=== PATIENT | female | born 1950 | race Caucasian/White ===

== ENCOUNTER → 2022-10-04 10:40 | Outpatient (CLI) | payer MEDICARE, OTHER, SELFPAY ==
[2022-10-04 12:24] LABS: Add Manual Diff / Slide Review NO; Basophils Absolute Auto 0 /uL (0-100); Basophils Percent Auto 0.8 % (0-2); Eosinophils Absolute Auto 200 /uL (0-450); Eosinophils Percent Auto 3.3 % (2-4); Hematocrit 40.4 % (36-46); Hemoglobin 13.5 g/dL (12.0-16.0); Lymphocytes Absolute Auto 1800 /uL (1100-4500); Mean Corpuscular HGB Conc 33.4 % (30-36); Mean Corpuscular Hemoglobin 29.7 PG (26-34); Mean Corpuscular Volume 89.2 fL (80-100); Monocytes Absolute Auto 400 /uL (0-900); Monocytes Percent Auto 8.9 % (3-14); Neutrophils Absolute Auto 2600 /uL (1500-7000); Platelet Count 350 X10^3/uL (150-400); Red Blood Cell Count 4.53 X10^6/uL (4.0-5.2); Red Cell Distribution Width 13.9 % (11.6-14.8)
[2022-10-04 12:27] LABS: Hemoglobin A1C% w Est Avg Glu 5.7 % (4.0-6.0)
[2022-10-04 12:29] LABS: Alanine Aminotransferase 13 IU/L (<35); Albumin 3.8 g/dL (3.5-5.0); Albumin Globulin Ratio 1.2 (1.0-2.8); Alkaline Phosphatase 58 U/L (38-126); Aspartate Aminotransferase 17 IU/L (14-36); BUN Creatinine Ratio 21.7 (6-22); Bilirubin Total 0.4 mg/dL (0.2-1.3); Blood Urea Nitrogen 13 mg/dL (7-17); Calcium 9.3 mg/dL (8.4-10.2); Carbon Dioxide 31 mmol/L (22-32); Chloride 102 mmol/L (98-107); Cholesterol 249 mg/dL (140-199); Estimated Glomerular Filt Rate > 60 mL/min (>60); Globulin 3.2 g/dL (1.7-4.1); Glucose 87 mg/dL (80-110); HDL Cholesterol 56 mg/dL (40-60); HEMOLYSIS < 15 (0-50); LDL Cholesterol Calculated 170 mg/dL (<100); Potassium 3.6 mmol/L (3.4-5.1); Sodium 142 mmol/L (137-145); Triglycerides 115 mg/dL (35-150)
[2022-10-04 12:45] LABS: Free T3, Triiodothyronine Free 2.88 pg/mL (2.77-5.27); Free T4, Direct Thyroxine 1.29 ng/dL (0.78-2.19)
[2022-10-04 12:58] LABS: Thyroid Stimulating Hormone 1.94 uIU/mL (0.47-4.68)
[2022-10-04 13:19] LABS: Vitamin B12 618 pg/mL (239-931)
== END ==
PROVIDERS: PCP Naturopath; Referring Provider Naturopath; Visit Provider Naturopath
DX: M06.9 Rheumatoid arthritis, unspecified (principal); Z00.00 Encounter for general adult medical examination without abnormal findings; E03.9 Hypothyroidism, unspecified; R53.83 Other fatigue; J44.9 Chronic obstructive pulmonary disease, unspecified
CPT/HCPCS: 36415; 80053; 80061; 82607; 83036; 84439; 84443; 84481; 85025

== ENCOUNTER 2023-02-05 14:19 | Emergency (ER) | payer MEDICARE, OTHER, SELFPAY ==
[2023-02-05 14:23] VITALS: BP 185/77; PULSE 76; RESP 22; TEMP 37; O2SAT 93; BMI 33.8
--- NOTE | 2023-02-05 14:46 | DI.RAD.S_ITS ---
PROCEDURE: XR PELVIS 1-2V INDICATIONS: fall/tailbone/pelvis TECHNIQUE: 1 view(s) of the pelvis acquired. COMPARISON: None. FINDINGS: Bones: No fractures or dislocations. No suspicious bony lesions. Soft tissues: Visualized bowel gas pattern is normal. No suspicious soft tissue calcifications. IMPRESSION: No evidence acute bony abnormality. If clinical suspicion and/or symptoms persist, further assessment with repeat plain films, or advanced imaging (e.g., CT, MRI, or bone scan) may be helpful for further assessment. Dictated by: Valeriy Bella M.D. on 02/05/2023 at 17:16 Approved by: Valeriy Bella M.D. on 02/05/2023 at 17:16
--- NOTE | 2023-02-05 14:46 | DI.CT.S_ITS ---
PROCEDURE: CT HEAD/BRAIN WO CON INDICATIONS: fall/hit head TECHNIQUE: Noncontrast 4.5 mm thick angled axial sections acquired from the foramen magnum to the vertex, with coronal and sagittal reformats. For radiation dose reduction, the following was used: automated exposure control, adjustment of mA and/or kV according to patient size. COMPARISON: None. FINDINGS: Image quality: Excellent. CSF spaces: Basal cisterns are patent. No extra-axial fluid collections. The ventricles are symmetric in size and shape. Brain: No intracranial bleeds or masses. There is mild cerebral volume loss for age, with resultant ventricular and sulcal prominence. There are periventricular and deep white matter chronic small vessel ischemic changes. There is intracranial internal carotid artery atherosclerosis. Skull and face: Calvarium and visualized facial bones appear intact, without suspicious lesions. Sinuses: Visualized sinuses and mastoids are clear. IMPRESSION: 1. No acute intracranial findings. 2. Mild findings likely associated with microvascular ischemic change. Dictated by: Erin Lopze M.D. on 02/05/2023 at 16:07 Approved by: Erin Lopez M.D. on 02/05/2023 at 16:08
--- NOTE | 2023-02-05 14:46 | DI.RAD.S_ITS ---
PROCEDURE: XR CHEST 2V INDICATIONS: fall/hit head TECHNIQUE: 2 views of the chest were acquired. COMPARISON: , CR, XR CHEST 2VW, 06/11/2015, 18:14. FINDINGS: Surgical changes and devices: None. Lungs and pleura: There is diffuse interstitial prominence. Findings have a similar appearance to the comparison plain film dated June 11, 2015. No acute airspace opacities. No pleural effusion or pneumothorax. Mediastinum: Mediastinal contours are normal. Heart size is normal. Bones and chest wall: Multiple compression deformities and prior multilevel vertebroplasty is redemonstrated. Bones are diffusely osteopenic. IMPRESSION: 1. Diffuse interstitial prominence suggesting fibrotic change. Dictated by: Erin Lopez M.D. on 02/05/2023 at 16:05 Approved by: Erin Lopez M.D. on 02/05/2023 at 16:06
--- NOTE | 2023-02-05 14:46 | DI.CT.S_ITS ---
PROCEDURE: CT CERVICAL SPINE WO CON INDICATIONS: fall/hit head TECHNIQUE: Noncontrast 3 mm thick sections acquired from the skull base to the T4 level. Sagittal and coronal reformats were then constructed. For radiation dose reduction, the following was used: automated exposure control, adjustment of mA and/or kV according to patient size. COMPARISON: None. FINDINGS: Image quality: Excellent. Bones: No fractures or dislocations. Visualized superior ribs are intact. Soft tissues: Prevertebral soft tissues are normal in thickness. No paravertebral hematomas. No apical pneumothoraces. Scattered atheromatous calcifications are present within the aortic arch. IMPRESSION: No acute cervical spine injury. Dictated by: Erin Lopez M.D. on 02/05/2023 at 16:08 Approved by: Erin Lopez M.D. on 02/05/2023 at 16:10
[2023-02-05 15:41] VITALS: BP 146/73; PULSE 73; RESP 16; O2SAT 88
--- NOTE | 2023-02-05 18:14 | ED.FALL ---
HPI - Fall General Chief Complaint: Fall Stated Complaint: sitting on walker and fell landed on butt hit head Time Seen by Provider: 02/05/23 18:05 Source: patient Mode of arrival: Ambulatory History of Present Illness HPI Narrative: Patient is a 72-year-old female who was not on anticoagulation who is sitting in the walker that she uses she goes on extended walk secondary to her COPD. She states that the walker slid out from underneath her and she fell down landing specifically on her buttocks and then falling over and hitting her head. There was no loss of consciousness. She was placed in a cervical collar upon arrival however when I went to evaluate the patient the collar had been removed. She reports no neck pain. Does have some lower back pain. Has not tried anything for symptoms prior to arrival. Related Data Home Medications Medication Instructions Recorded Confirmed denosumab 60 mg/mL subcutaneous 60 mg SUBCUT [id number] 12/02/22 12/02/22 syringe (Prolia) etanercept 50 mg/mL (1 mL) 50 mg SUBCUT 2XW 12/02/22 12/02/22 subcutaneous cartridge levothyroxine 25 mcg tablet 25 mcg PO DAILY 12/02/22 12/02/22 (Synthroid) prednisone 1 mg tablet 1 mg PO DAILY 12/02/22 12/02/22 rosuvastatin 5 mg tablet 5 mg PO DAILY 12/02/22 12/02/22 Allergies Allergy/AdvReac Type Severity Reaction Status Date / Time No Known Drug Allergies Allergy Unverified 12/02/22 13:26 Review of Systems Constitutional Constitutional: Reports system reviewed and no additional complaints, except as documented Cardiovascular Cardiovascular: Reports system reviewed and no additional complaints, except as documented Respiratory Respiratory: Reports system reviewed and no additional complaints, except as documented Gastrointestinal Gastrointestinal: Reports system reviewed and no additional complaints, except as documented Integumentary/Breasts Skin/Breast: Reports system reviewed and no additional complaints, except as documented Neurologic Neurologic: Reports system reviewed and no additional complaints, except as documented Hematologic/Lymphatic On Anticoagulants: No Patient History Social History Smoking Status: Former smoker Smoking Status: Former smoker Substance Use Type: does not use Exam Initial Vital Signs Initial Vital Signs: Vital Signs Temperature 98.6 F 02/05/23 14:23 Pulse Rate 76 02/05/23 14:23 Respiratory Rate 22 02/05/23 14:23 Blood Pressure 185/77 H 02/05/23 14:23 Pulse Oximetry 93 02/05/23 14:23 Oxygen Delivery Method Room Air 02/05/23 14:23 Const General: cooperative, comfortable and No ill appearing [facility] [place] Head: normocephalic and contusion (Right parietal region) Resp Effort & Inspection: normal respiratory effort Auscultation: clear to auscultation bilaterally Cardio Rate: regular rate Rhythm: regular rhythm Back/Spine/Pelvis Cervical Spine: No cervical spinal tenderness Skin Other: Contusion of the right parietal region of the scalp Neuro General: patient alert, patient awake and moves all extremities Extrem General: normal to inspection and capillary refill normal Course Orders Ordered: ED Orders 02/05/23 14:46 CT cervical spine wo con Stat CT head/brain wo con Stat XR chest 2V Stat XR pelvis 1-2V Stat Vital Signs Vital signs: Vital Signs - 8 hr 02/05/23 18:21 Pulse Rate 78 Respiratory Rate 16 Blood Pressure 145/69 H Pulse Oximetry 88 L Oxygen Delivery Method Room Air MDM - Fall Imaging Data CT - cervical spine: Radiologist's Impression: PROCEDURE:? CT CERVICAL SPINE WO CON ? INDICATIONS:? fall/hit head ? TECHNIQUE:? Noncontrast 3 mm thick sections acquired from the skull base to the T4 level.? Sagittal and coronal reformats were then constructed.? For radiation dose reduction, the following was used:? automated exposure control, adjustment of mA and/or kV according to patient size.? ? COMPARISON:? None. ? FINDINGS:? Image quality:? Excellent.? ? Bones:? No fractures or dislocations.? Visualized superior ribs are intact.? ? Soft tissues:? Prevertebral soft tissues are normal in thickness.? No paravertebral hematomas.? No apical pneumothoraces.? Scattered atheromatous calcifications are present within the aortic arch. ? IMPRESSION:? No acute cervical spine injury. Chest x-ray: Radiologist's Impression: PROCEDURE:? XR CHEST 2V ? INDICATIONS:? fall/hit head ? TECHNIQUE:? 2 views of the chest were acquired.? ? COMPARISON:? [facility], CR, XR CHEST 2VW, 06/11/2015, 18:14. ? FINDINGS:? ? Surgical changes and devices:? None.? ? Lungs and pleura:? There is diffuse interstitial prominence.? Findings have a similar appearance to the comparison plain film dated June 11, 2015. No acute airspace opacities.? No pleural effusion or pneumothorax. ? Mediastinum:? Mediastinal contours are normal.? Heart size is normal.? ? Bones and chest wall:? Multiple compression deformities and prior multilevel vertebroplasty is redemonstrated.? Bones are diffusely osteopenic. ? IMPRESSION:? ? 1. Diffuse interstitial prominence suggesting fibrotic change.? CT scan - head: Radiologist's Impression: PROCEDURE:? CT HEAD/BRAIN WO CON ? INDICATIONS:? fall/hit head ? TECHNIQUE:? Noncontrast 4.5 mm thick angled axial sections acquired from the foramen magnum to the vertex, with coronal and sagittal reformats.? For radiation dose reduction, the following was used:? automated exposure control, adjustment of mA and/or kV according to patient size.? ? COMPARISON:? None. ? FINDINGS:? Image quality:? Excellent.? ? CSF spaces:? Basal cisterns are patent.? No extra-axial fluid collections.? The ventricles are symmetric in size and shape.? ? Brain:? No intracranial bleeds or masses.? There is mild cerebral volume loss for age, with resultant ventricular and sulcal prominence.? There are periventricular and deep white matter chronic small vessel ischemic changes.? There is intracranial internal carotid artery atherosclerosis.? ? Skull and face:? Calvarium and visualized facial bones appear intact, without suspicious lesions.? ? Sinuses:? Visualized sinuses and mastoids are clear.? ? IMPRESSION:? ? 1. No acute intracranial findings. ? 2. Mild findings likely associated with microvascular ischemic change.? pelvis x-ray: Radiologist's Impression: PROCEDURE:? XR PELVIS 1-2V ? INDICATIONS:? fall/tailbone/pelvis ? TECHNIQUE:? 1 view(s) of the pelvis acquired.? ? COMPARISON:? None. ? FINDINGS:? ? Bones:? No fractures or dislocations.? No suspicious bony lesions.? ? Soft tissues:? Visualized bowel gas pattern is normal.? No suspicious soft tissue calcifications.? ? IMPRESSION:? No evidence acute bony abnormality. MDM Narrative Medical decision making narrative: Radiologic studies here in the emergency department are all unremarkable. The contusion on her scalp needs no specific intervention here in the ER. She is no neck pain. He is hypoxic but does have history of COPD and does have oxygen at home. Will discharge patient home with return precautions. She expressed understanding and agreement with plan. Discharge Plan Departure Patient Disposition: Home Clinical Impression: Contusion of scalp, Acute coccygeal pain Instructions: DI for Contusion Activity Restrictions/Additional Instructions: Recommend that you continue to take all of your medications as directed. Contact your primary doctor for follow-up. Return to the emergency department for new or worsening symptoms. Prescriptions: No Action Prolia 60 mg/mL syringe 60 mg SUBCUT [id number] etanercept 50 mg/mL (1 mL) cartridge 50 mg SUBCUT 2XW levothyroxine [Synthroid] 25 mcg tablet 25 mcg PO DAILY rosuvastatin 5 mg tablet 5 mg PO DAILY prednisone 1 mg tablet 1 mg PO DAILY Referrals: Gabi Lewis ND [Primary Care Provider] - Stand Alone Forms: Patient Portal/API
[2023-02-05 18:21] VITALS: BP 145/69; PULSE 78; RESP 16; O2SAT 88
== END 2023-02-05 18:21 | disposition home or self-care (01) ==
PROVIDERS: Emergency Provider Emergency Medicine; PCP Naturopath
DX: S00.03XA Contusion of scalp, initial encounter (principal); M53.3 Sacrococcygeal disorders, not elsewhere classified; R09.02 Hypoxemia; W17.89XA Other fall from one level to another, initial encounter
CPT/HCPCS: 70450; 71046; 72125; 72170; 99281; 99284

== ENCOUNTER → 2023-02-27 12:09 | Outpatient (CLI) | payer MEDICARE, OTHER, SELFPAY ==
--- NOTE | 2023-02-27 12:41 | DI.CT.S_ITS ---
PROCEDURE: CT CHEST HIGH RESOLUTION INDICATIONS: Interstitial pulmonary disease, unspecified TECHNIQUE: Noncontrast 1.0 and 5.0 mm thick contiguous axial sections from the pulmonary apex to the posterior costophrenic angles, with 7 mm thick coronal and sagittal MIP reformats. 1 mm thick dynamic expiratory images acquired through the upper, mid, and lower lungs. 1.0 mm thick axial sections acquired from the joseline to the posterior costophrenic angles in the prone end-inspiration position. For radiation dose reduction, the following was used: automated exposure control, adjustment of mA and/or kV according to patient size. COMPARISON: None. FINDINGS: Image quality: Good Lungs and pleura: Emphysematous changes. Mild suspected atelectasis, although prone images were not obtained for confirmation. Scattered other areas of suspected scarring. No honeycombing. Possible minimal reticular changes at the periphery of the lung. There is moderate degree of air trapping. This is most noticeable in the bilateral lower lobes. No pleural effusions. There are multiple small pulmonary nodules, index nodule in the left costophrenic angle measuring 9-10 mm. (2/186) Mediastinum, heart, and esophagus: No pathologic adenopathy by size criteria. Atherosclerotic calcifications and coronary calcifications. Small hiatal hernia. Mild lipomatous hypertrophy of the interatrial septum. Chest wall and thyroid: Thyroid is partially seen. No significant chest wall abnormality. Upper abdomen: No gross abnormality on these noncontrast images Bones: Vertebral augmentation at multiple levels. Degenerative changes. No definitely acute or suspicious finding. Exaggerated thoracic kyphosis, partially in part due to multiple fractures status post augmentation. There is also a manubrial deformity. IMPRESSION: Emphysematous changes and moderate degree of air trapping, the latter indicating chronic small airways constriction/inflammation. Minimal peripheral reticulation without honeycombing. Consider future followup to assess for progression.. ATS 2018 HRCT classification: Not compatible with UIP pattern. Multiple pulmonary nodules, index lesion at the left costophrenic angle, which may represent a nodular area of scarring measuring 9-10 mm (2/186). Consider regular CT follow-up in three months. Coronary disease. Dictated by: Merlin Samuel M.D. on 02/27/2023 at 16:23 Approved by: Merlin Samuel M.D. on 02/27/2023 at 16:30
== END ==
PROVIDERS: PCP Naturopath; Referring Provider Internal Medicine Pulmonary Disease; Visit Provider Internal Medicine Pulmonary Disease
DX: J84.9 Interstitial pulmonary disease, unspecified (principal); R91.8 Other nonspecific abnormal finding of lung field; I25.10 Atherosclerotic heart disease of native coronary artery without angina pectoris; K44.9 Diaphragmatic hernia without obstruction or gangrene
CPT/HCPCS: 71250

== ENCOUNTER → 2024-02-11 15:18 | Outpatient (CLI) | payer MEDICARE, OTHER, SELFPAY ==
--- NOTE | 2024-02-11 15:21 | DI.RAD.S_ITS ---
PROCEDURE: XR CERVICAL SPINE 2V OR 3V INDICATIONS: NECK PAIN TECHNIQUE: 3 view(s) of the cervical spine were acquired. COMPARISON: [facility], CT, CT CERVICAL SPINE WO [facility], 02/05/2023, 14:56. FINDINGS: Bones: No fractures or dislocations to the C5 level. Mild degenerative changes. The lateral masses of C1 appear intact on the odontoid view. No suspicious bony lesions. Soft tissues: No prevertebral soft tissue swelling. IMPRESSION: Suboptimal images as the shoulder obscures evaluation of the lower cervical spine. Mild degenerative changes. Dictated by: Joe Masterson M.D. on 02/11/2024 at 19:06 Approved by: Joe Masterson M.D. on 02/11/2024 at 19:10
== END ==
PROVIDERS: PCP Naturopath
DX: M54.2 Cervicalgia (principal); M47.812 Spondylosis without myelopathy or radiculopathy, cervical region
CPT/HCPCS: 72040

== ENCOUNTER → 2024-02-16 12:21 | Outpatient (CLI) | payer MEDICARE, OTHER, SELFPAY ==
--- NOTE | 2024-02-16 12:24 | DI.ECHO.S_ITS ---
[place] [facility]---------+ [facility] : : [address] : : [place] : : [id number] : : Phone: [phone] Echocardiogram Report + + :Name: REY OVERTON Study Date: 02/16/2024 Height: 62 in : :[facility] ReadingLocation: Weight: 190 lb : : Gender: Female BSA: 1.9 m2 : :: 1950 Age: 73 yrs BP: 164/88 mmHg: :Reason For Study: CHRONIC DIASTOLIC HEART FAILURE : :Ordering Physician: SE, : :DIMITRI Performed By: Dax Howard : :Referring: DIMITRI SAEZ : + + Interpretation Summary The study quality was technically difficult. There is mild concentric left ventricular hypertrophy. The ejection fraction is estimated to be 60-65%. The left atrium is moderately dilated. The right atrium is mild to moderately dilated. There is mild aortic valve sclerosis. There is mild mitral annular calcification. Procedure: A two-dimensional transthoracic echocardiogram with color flow and Doppler was performed. The study quality was technically difficult. There is no prior echocardiogram noted for this patient. The heart rate ranged between 59-85 bpm during the study. Left Ventricle: The left ventricle is normal in size. There is mild concentric left ventricular hypertrophy. The ejection fraction is estimated to be 60-65%. There are no focal wall motion abnormalities. Right Ventricle: The right ventricle is normal in size and function. Atria: The left atrium is moderately dilated. The right atrium is mild to moderately dilated. The interatrial septum grossly appears intact with no obvious evidence for an atrial septal defect. Mitral Valve: The mitral valve is grossly normal. There is mild mitral annular calcification. There is no mitral valve stenosis. There is trace mitral regurgitation. Aortic Valve: The aortic valve is trileaflet. There is mild aortic valve sclerosis. There is no aortic valve stenosis. No aortic regurgitation is present. Tricuspid Valve: The tricuspid valve is not well visualized. There is no tricuspid stenosis. No tricuspid regurgitation. Pulmonic Valve: The pulmonic valve is not well visualized. There is no pulmonic valvular stenosis. There is no pulmonic valvular regurgitation. Great Vessels: The aortic root is normal size. The dimensions of the ascending aorta are normal. The inferior vena cava was not visualized. Pericardium/ Pleura There is no pericardial effusion. There is no pleural effusion. MMode/2D Measurements & Calculations LVIDd: 5.5 cm LVOT diam: 2.2 cm LVIDs: 4.1 cm Ao root diam: 3.1 cm FS: 25.2 % asc Aorta Diam: 3.3 cm IVSd: 1.2 cm LVPWd: 1.1 cm LV tolbert. diameter/BSA (cm/m^2): 2.9 LV sys. diameter/BSA (cm/m^2): 2.2 LA A2 area: 27.4 cm2 RA long axis: 5.1 cm LA A4 area: 28.4 cm2 RA area: 21.6 cm2 LA length (vol): 5.7 cm RA vol: 77.5 ml LA vol: 116.8 ml RA : 41.4 ml/m2 LA vol index: 62.4 ml/m2 RVD1 (basal): 3.6 cm RVD2 (mid): 3.0 cm TAPSE: 1.9 cm Doppler Measurements & Calculations Ao V2 max: 131.0 cm/sec LVOT Max Robert: 97.9 cm/sec Ao V2 mean: 90.7 cm/sec LV V1 max P.8 mmHg Ao max P.9 mmHg LV V1 VTI: 24.8 cm Ao mean P.7 mmHg TAYLOR(I,D): 3.2 cm2 Ao V2 VTI: 30.4 cm TAYLOR(V,D): 2.9 cm2 sev ratio: 0.82 TAYLOR indexed to BSA (cm^2/m^2): 1.7 Med Peak E' Robert: 6.4 cm/sec PA V2 max: 105.4 cm/sec Lat Peak E' Robert: 8.4 cm/sec PA V2 mean: 77.0 cm/sec PA mean P.6 mmHg PA pr(Accel): 51.6 mmHg SV(LVOT): 96.0 ml Electronically signed by: Alpesh Holbrook on Reading Physician:02/16/2024 03:27 PM
--- NOTE | 2024-02-16 12:24 | DI.US.S_ITS ---
PROCEDURE: US CAROTID DOPPLER BI INDICATIONS: Chronic diastolic (congestive) heart failure TECHNIQUE: Color and pulse Doppler interrogation was performed of both carotid systems, with image documentation and velocity measurements. COMPARISON: [facility], CT, CT CERVICAL SPINE WO CON, 02/05/2023, 14:56. FINDINGS: Stenosis calculations are based on SRU (Society of Radiologists in Ultrasound) criteria. Right side: Brachial blood pressure: 211/84 mm Hg. Common carotid artery peak systolic velocity: 87 cm/sec. Internal carotid artery peak systolic velocity: 61 cm/sec. Internal carotid artery end diastolic velocity: 19 cm/sec. External carotid artery peak systolic velocity: 102 cm/sec. ICA/CCA peak systolic ratio: 0.7. Brock scale imaging description: Extensive plaque. Percent internal carotid artery stenosis: Less than 50% stenosis. Vertebral artery: Flow direction is antegrade. Left side: Brachial blood pressure: 186/80 mm Hg. Common carotid artery peak systolic velocity: 68 cm/sec. Internal carotid artery peak systolic velocity: 93 cm/sec. Internal carotid artery end diastolic velocity: 16 cm/sec. External carotid artery peak systolic velocity: 73 cm/sec. ICA/CCA peak systolic ratio: 1.4. Brock scale imaging description: Moderate to severe plaque. Percent internal carotid artery stenosis: Less than 50% stenosis. Vertebral artery: Flow direction is antegrade. IMPRESSION: 1. Right ICA: Less than 50 % stenosis. 2. Left ICA: Less than 50 % stenosis. 3. Antegrade flow in the bilateral vertebral arteries. Dictated by: Joe Masterson M.D. on 02/16/2024 at 18:22 Approved by: Joe Masterson M.D. on 02/16/2024 at 18:25
== END ==
LOC: ECHO 12:22
PROVIDERS: PCP Naturopath; Referring Provider Physician Assistant; Visit Provider Physician Assistant
DX: I65.23 Occlusion and stenosis of bilateral carotid arteries (principal); I50.32 Chronic diastolic (congestive) heart failure; I34.81 Nonrheumatic mitral (valve) annulus calcification; I35.8 Other nonrheumatic aortic valve disorders
CPT/HCPCS: 93306; 93880

== ENCOUNTER → 2024-10-01 12:21 | Outpatient (CLI) | payer MEDICARE, OTHER, SELFPAY ==
--- NOTE | 2024-10-01 12:25 | DI.CT.S_ITS ---
PROCEDURE: CT CHEST HIGH RESOLUTION INDICATIONS: Breathing problem TECHNIQUE: Noncontrast 1.0 and 5.0 mm thick contiguous axial sections from the pulmonary apex to the posterior costophrenic angles, with 7 mm thick coronal and sagittal MIP reformats. 1 mm thick dynamic expiratory images acquired through the upper, mid, and lower lungs. 1.0 mm thick axial sections acquired from the joseline to the posterior costophrenic angles in the prone end-inspiration position. For radiation dose reduction, the following was used: automated exposure control, adjustment of mA and/or kV according to patient size. COMPARISON: [facility], CT, CT CHEST HIGH RESOLUTION, 02/27/2023, 12:37. FINDINGS: Image quality: Diagnostic. Lower Neck: No enlarged lymph nodes. Thyroid: Not visualized Axillae: No enlarged lymph nodes. Chest Wall: Unremarkable. Bones: Healed sternal manubrium fracture. Stable compression deformities of the thoracolumbar spine, status post vertebral augmentation. Osteoporosis. Lungs and Pleura: Confluent centrilobular emphysema. Stable juxtapleural nodules in the left lower lobe. Similar mild architectural distortion in the right upper lobe. Diffuse bronchial thickening period mild smooth interstitial thickening. Lower lobe predominant air trapping. Heart: Heart size is enlarged, with three-vessel coronary calcifications.. No pericardial effusion. Thoracic Vessels: The aorta and pulmonary arteries demonstrate normal size. Mediastinum and [place]: No enlarged lymph nodes. Esophagus: No wall thickening. No hiatal hernia. Upper Abdomen: Visualized upper abdomen solid organs and bowel loops appear normal. IMPRESSION: Mild pulmonary edema. Confluent centrilobular emphysema, without significant change from prior. Stable juxtapleural nodules in the left lower lobe. Lower lobe predominant air trapping, similar to prior. Consider annual low-dose lung cancer screening if eligible (age 50-85 who have a 20 pack-year smoking history and currently smoke or have quit within the last 15 years). Dictated by: Jadon Pop M.D. on 10/01/2024 at 15:53 Approved by: Jadon Pop M.D. on 10/01/2024 at 15:57
== END ==
PROVIDERS: PCP Naturopath; Referring Provider Internal Medicine Pulmonary Disease; Visit Provider Internal Medicine Pulmonary Disease
DX: J44.9 Chronic obstructive pulmonary disease, unspecified (principal); J84.9 Interstitial pulmonary disease, unspecified; J81.1 Chronic pulmonary edema; J43.2 Centrilobular emphysema; R91.8 Other nonspecific abnormal finding of lung field
CPT/HCPCS: 71250

== ENCOUNTER → 2024-10-05 11:11 | Outpatient (CLI) | payer MEDICARE, OTHER, SELFPAY | LOC: RESP 11:12 | PROVIDERS: PCP Naturopath; Referring Provider Internal Medicine Pulmonary Disease; Visit Provider Internal Medicine Pulmonary Disease | DX: J44.9 Chronic obstructive pulmonary disease, unspecified (principal); J84.9 Interstitial pulmonary disease, unspecified; Z87.891 Personal history of nicotine dependence; R94.2 Abnormal results of pulmonary function studies | CPT/HCPCS: 94060; 94726; 94729 ==

== ENCOUNTER → 2024-11-15 14:23 | Outpatient (CLI) | payer MEDICARE, OTHER, SELFPAY ==
--- NOTE | 2024-11-15 14:24 | DI.US.S_ITS ---
PROCEDURE: US PERIPH VENOUS LOW EXTREM RT INDICATIONS: RIGHT CALF PAIN TECHNIQUE: Real-time imaging, as well as color and pulse Doppler interrogation, were performed of the lower extremity deep veins from the inguinal ligament to the popliteal fossa, with documentation of the visualized calf veins. COMPARISON: None. FINDINGS: The common femoral, femoral, popliteal, and the visualized calf veins are normally compressible, and free of intraluminal thrombus. Color and pulse Doppler demonstrate normal phasic intraluminal flow. There is normal augmentation response to distal compression maneuver. IMPRESSION: No evidence of DVT in visualized right lower extremity veins. Dictated by: Mt Trent M.D. on 11/15/2024 at 15:19 Approved by: Mt Trent M.D. on 11/15/2024 at 15:21
== END ==
PROVIDERS: PCP Naturopath; Referring Provider Family Medicine; Visit Provider Family Medicine
DX: M79.661 Pain in right lower leg (principal)
CPT/HCPCS: 93971

== ENCOUNTER → 2025-01-07 13:46 | Outpatient (CLI) | payer MEDICARE, OTHER, SELFPAY ==
--- NOTE | 2025-01-10 17:40 | DI.NM.S_ITS ---
DATE OF SERVICE: 01/07/2025 NUCLEAR CARDIOLOGY MYOCARDIAL PERFUSION STUDY PROCEDURE PERFORMED: Pharmacologic vasodilator stress and rest myocardial perfusion imaging study with gating to assess ejection fraction and regional wall motion. ORDERING PROVIDER: Sukhdeep Trent MD. INDICATIONS: The patient is a 74-year-old female with oxygen-dependent interstitial lung disease and coronary artery calcification. CARDIAC STRESS: Per protocol, 0.4 mg of regadenoson was infused with a normal hemodynamic response with minimal dyspnea and no chest discomfort. Her resting ECG is normal except very subtle ST- segment abnormalities that become slightly accentuated with stress but remain nonspecific. She develops occasional PVCs, briefly in a bigeminal pattern with stress but no other complex arrhythmias. Per protocol, 25.3 millicuries of technetium-99m Myoview was injected and she was imaged 15 minutes later using a gated SPECT acquisition protocol. Three days prior, while at rest, she had been injected with 25 millicuries of technetium-99m Myoview and was imaged 15 minutes later, again using a quantitative gated SPECT protocol. FINDINGS: 1. There is fair myocardial tracer uptake but with prominent breast shadows that clearly produced some attenuation. The lung/heart ratio is normal at 0.27. While the TID ratio is borderline elevated at 1.31, this is nonspecific with the use of pharmacologic vasodilator stress. 2. Quantitated gated SPECT. Post-stress ejection fraction is 61% without any focal wall motion abnormality. Resting ejection fraction is 64% with a normal resting end-diastolic volume of 110 mL. There is significant right ventricular tracer uptake with borderline hypokinesis, suggesting a probable underlying right ventricular ovrload condition, but clinical correlation is needed. 3. Myocardial perfusion imaging: While there is significant subdiaphragmatic tracer uptake that over flows into the inferior wall, there are no perfusion defects on the supine images, revealing a normal perfusion pattern. No prone images were available as she was unable to lie prone. The resting image show an identical perfusion pattern without any significant improvement. IMPRESSION: 1. Normal myocardial perfusion study for ischemia. 2. No perfusion defects to suggest myocardial ischemia or previous myocardial infarction. 3. Normal left ventricular size and systolic function without any focal wall motion abnormality. There is increased right ventricular tracer uptake, which can be an indication of a right ventricular stress condition, but clinical correlation is needed. 4. No angina or significant ECG evidence for ischemia, but with subtle ST-segment shifts and PVCs with stress, at times in a bigeminal pattern, but no concerning arrhythmia. While post-stress volumes are slightly larger with a TID ratio of 1.31, which can be an indication of global ischemia, it is nonspecific with the use of vasodilator stress and clinical correlation is recommended. Lindsey De Souza - DAVID/kee/DAMIAN doc#: [id number]/job#: [id number] dd: 01/10/2025 17:15:00 dt: 01/10/2025 17:26:00 DICTATING MD/COPIES TO: Yovany Dumont MD; Sukhdeep Trent MD COPIES MNE: IRIS;
== END ==
PROVIDERS: PCP Physician Assistant; Referring Provider Internal Medicine; Visit Provider Internal Medicine
DX: I25.10 Atherosclerotic heart disease of native coronary artery without angina pectoris (principal)
CPT/HCPCS: 78452; 93017; A9502; J2785

== ENCOUNTER → 2025-01-12 10:18 | Outpatient (CLI) | payer MEDICARE, OTHER, SELFPAY ==
--- NOTE | 2025-01-12 10:19 | DI.ECHO.S_ITS ---
[facility] : : [address] : : [place] : : [id number] : : Phone: [phone] Echocardiogram Report + + :Name: REY OVERTON Study Date: 01/12/2025 Height: 62 in : :[facility] ReadingLocation: Weight: 202 lb : : Gender: Female BSA: 1.9 m2 : :: 1950 Age: 74 yrs BP: 154/69 mmHg: :Reason For Study: ARTERY CALCIFICATION : :Ordering Physician: JACKELYN TRENT Performed By: Dax Howard : :Referring: JACKELYN TRENT : + + Interpretation Summary 1. The left ventricular contractility is borderline. Estimate ejection fraction is approximately 50 to 55% with no segmental wall motion abnormalities. Mild asymmetrical septal hypertrophy without obstruction. No diastolic dysfunction. 2. The right ventricular contractility is normal. 3. All cardiac chambers are normal size. 4. No significant valvular abnormalities. 5. No obvious intracardiac shunts. 6. No obvious intracardiac masses nor thrombi. 7. No hemodynamically significant pericardial effusion. 8. Low right-sided filling pressures. Conclusion: Low normal left ventricular systolic function with no significant valvular abnormalities. When compared with previous echocardiogram, there is a decline in the left ventricular systolic function. Procedure: A two-dimensional transthoracic echocardiogram with color flow and Doppler was performed. The study quality was technically difficult. Comparison is made with the echocardiogram of 02/16/2024. The patient was in normal sinus rhythm during the exam. Left Ventricle: The left ventricle is normal in size. There is mild asymmetric left ventricular hypertrophy. There is no ventricular septal defect visualized. The ejection fraction is estimated to be 50-55%. Right Ventricle: The right ventricle is normal in size and function. Atria: The left atrial size is normal. Right atrial size is normal. There is no Doppler evidence for an interatrial shunt. Mitral Valve: The mitral valve leaflets appear normal. There is no evidence of stenosis, fluttering, or prolapse. There is mild mitral annular calcification. There is trace mitral regurgitation. Aortic Valve: The aortic valve is trileaflet. The aortic valve opens well. No aortic regurgitation is present. Tricuspid Valve: The tricuspid valve leaflets are thin and pliable. There is trace tricuspid regurgitation. Pulmonic Valve: The pulmonic valve is not well seen, but is grossly normal. There is trace pulmonic regurgitation. Great Vessels: The aortic root is normal size. The dimensions of the ascending aorta are normal. The pulmonary artery is normal size. The IVC is of normal diameter and collapses greater than 50% with a sniff. This suggests a low right atrial pressure of 3 mm Hg. Pericardium/ Pleura There is no pericardial effusion. There is no pleural effusion. MMode/2D Measurements & Calculations LVIDd: 5.7 cm LVOT diam: 1.9 cm LVIDs: 4.3 cm Ao root diam: 3.1 cm FS: 24.4 % asc Aorta Diam: 3.4 cm EPSS: 2.6 cm IVSd: 1.2 cm LVPWd: 1.0 cm LV tolbert. diameter/BSA (cm/m^2): 3.0 LV sys. diameter/BSA (cm/m^2): 2.2 LA A2 area: 15.4 cm2 RA long axis: 4.6 cm LA A4 area: 18.8 cm2 RA area: 11.3 cm2 LA length (vol): 5.9 cm RA vol: 23.3 ml LA vol: 41.3 ml RA : 12.2 ml/m2 LA vol index: 21.5 ml/m2 IVC diam: 1.3 cm RVD1 (basal): 2.6 cm RVD2 (mid): 2.5 cm TAPSE: 2.2 cm Doppler Measurements & Calculations Ao V2 max: 132.9 cm/sec LVOT Max Robert: 97.9 cm/sec Ao V2 mean: 101.5 cm/sec LV V1 max P.8 mmHg Ao max P.1 mmHg LV V1 VTI: 24.3 cm Ao mean P.4 mmHg TAYLOR(I,D): 2.3 cm2 Ao V2 VTI: 29.7 cm TAYLOR(V,D): 2.0 cm2 sev ratio: 0.82 TAYLOR indexed to BSA (cm^2/m^2): 1.2 MV E max robert: 65.9 cm/sec PA V2 max: 116.7 cm/sec MV A max robert: 97.4 cm/sec PA V2 mean: 84.5 cm/sec MV E/A: 0.68 PA mean P.1 mmHg Med Peak E' Robert: 5.0 cm/sec PA pr(Accel): 25.9 mmHg E/E' med: 13.2 Lat Peak E' Robert: 9.4 cm/sec E/E' lat: 7.0 E/e' average: 10.1 MV dec time: [facility].[address] [facility] 67.4 ml Reading Physician:SERG
== END ==
PROVIDERS: PCP Physician Assistant; Referring Provider Internal Medicine; Visit Provider Internal Medicine
DX: I34.81 Nonrheumatic mitral (valve) annulus calcification (principal); I25.10 Atherosclerotic heart disease of native coronary artery without angina pectoris
CPT/HCPCS: 93306

== ENCOUNTER → 2025-02-17 07:16 | Outpatient (CLI) | payer MEDICARE, OTHER, SELFPAY ==
--- NOTE | 2025-02-17 07:18 | DI.US.S_ITS ---
PROCEDURE: US VENOUS INSUFFICIENCY BILAT INDICATIONS: BILAT LOWER EXT EDEMA TECHNIQUE: Real time scanning was performed of the lower extremity venous system, with imaging documentation, as well as Color and pulse Doppler interrogation. COMPARISON: None. FINDINGS: RIGHT LOWER EXTREMITY: The deep veins are normally compressible, and free of intraluminal thrombus. Color and pulse Doppler demonstrate normal intravascular flow. There is normal augmentation with distal compression maneuver. Greater saphenous vein (GSV): Normally 4 mm or less in diameter, with any reflux less than 0.5 seconds. Saphenofemoral junction (SFJ): 10 mm. There are 1.98 seconds of reflux. Proximal GSV: 3 mm. No reflux. Mid GSV: 2 mm. No reflux. Distal GSV: 3 mm. No reflux. Calf GSV: 1 mm, and no reflux. Anterior accessory GSV (AAGSV): Noted measuring 3 millimeters in diameter without significant reflux. Small saphenous vein (SSV): Posterior calf, draining into popliteal vein. Posterior calf: 5 mm, with 1.8 seconds of reflux. Vein of Giacomini (posterior thigh connection between GSV and SSV): Anatomic variant not seen. [employer] Specialist veins: Calf: Location proximal left calf, diameter 3 mm varicose vein demonstrating 2.3-5.4 seconds of reflux. Location tributary from the small saphenous vein, diameter 6 mm with 1.2 seconds of reflux. LEFT LOWER EXTREMITY: The deep veins are normally compressible, and free of intraluminal thrombus. Color and pulse Doppler demonstrate normal intravascular flow. There is normal augmentation with distal compression maneuver. Greater saphenous vein (GSV): Normally 4 mm or less in diameter, with any reflux less than 0.5 seconds. Saphenofemoral junction (SFJ): 7 mm common with 0.55 seconds of reflux. Proximal GSV: 2 mm. No reflux. Mid GSV: 2 mm. No reflux. Distal GSV: 1 mm. No reflux. Calf GSV: 1 mm. No reflux. Anterior accessory GSV (AAGSV): Anatomic variant not present across anterior thigh. Small saphenous vein (SSV): Posterior calf, draining into popliteal vein. Posterior calf: 1 mm. No reflux. Vein of Giacomini (posterior thigh connection between GSV and SSV): Anatomic variant not seen. Powered Bridge Specialist veins: Thigh: Location mid-thigh, diameter 2 mm with 1.5 seconds of reflux. IMPRESSION: Large varicose veins in the right calf measuring up to 6 millimeters diameter with significant reflux. Small left mid-thigh edge molder vein with 1.5 seconds of reflux. Reflux is also seen in the bilateral saphenofemoral junctions and left small saphenous vein. No DVT in either lower extremity. Dictated by: Rayo Melchor M.D. on 02/22/2025 at 16:44 Approved by: Rayo Melchor M.D. on 02/22/2025 at 16:57
== END ==
LOC: US 07:17
PROVIDERS: PCP Physician Assistant; Referring Provider Physician Assistant; Visit Provider Physician Assistant
DX: I87.2 Venous insufficiency (chronic) (peripheral) (principal); R60.0 Localized edema; M79.604 Pain in right leg
CPT/HCPCS: 93970